=== PATIENT | female | born 1995 | race Caucasian/White ===

== ENCOUNTER 2022-03-26 06:53 | Outpatient (CLI) | payer OTHER, SELFPAY ==
[2022-03-26 07:59] LABS: Basophils Percent Auto 0.6 % (0.2-1.2); Eosinophils Absolute Auto 0.1 K/mm3 (0-0.3); Eosinophils Percent Auto 1.5 % (0-4.4); Hematocrit 41.6 % (37.0-47.0); Hemoglobin 13.5 g/dL (12.0-15.0); Immature Granulocyte Absolute 0.02 K/mm3 (0.00-0.031); Immature Granulocyte Percent A 0.3 % (0-0.5); Lymphocytes Absolute Auto 2.08 K/mm3 (0.9-3.2); Lymphocytes Percent Auto 30.5 % (18.3-44.2); Mean Corpuscular HGB Conc 32.5 g/dl (32-36); Mean Corpuscular Hemoglobin 30.2 pg (26-34); Mean Corpuscular Volume 93.1 fl (80-100); Mean Platelet Volume 10.9 fl (7.4-10.4); Monocytes Absolute Auto 0.4 K/mm3 (0.1-0.6); Monocytes Percent Auto 6.5 % (2.6-8.5); Neutrophils Absolute Auto 4.1 K/mm3 (1.3-6.7); Neutrophils Percent Auto 60.6 % (45.5-73.1); Platelet Count Result 220 k/mm3 (150-375); Red Blood Count 4.47 M/mm3 (4.2-5.4); Red Cell Distribution Width 12.4 % (11.5-14.5); White Blood Count 6.8 K/mm3 (4.5-10.0)
[2022-03-26 08:09] LABS: Alanine Aminotransferase 19 U/L (6-35); Albumin Level 4.9 g/dL (3.5-5.1); Alkaline Phosphatase 49 U/L (38-126); Anion Gap 5 mmol/L (8-16); Aspartate Amino Transferase 25 U/L (14-36); Bilirubin,Total 0.5 mg/dL (0.2-1.3); Blood Urea Nitrogen 17 mg/dL (7-17); Calcium 9.5 mg/dL (8.4-10.2); Carbon Dioxide 29 mmol/L (22-30); Chloride 102 mmol/L (98-107); Cholesterol 187 mg/dL (0-200); Estimated Glomerular Filt Rate > 60; Glucose 101 mg/dL (65-110); HDL Direct 60 mg/dL; Potassium 3.9 mmol/L (3.4-5.0); Sodium 136 mmol/L (137-145); Triglycerides 110 mg/dL (<150)
[2022-03-26 08:20] LABS: LDL Cholesterol Direct 79 mg/dL
== END 2022-03-26 06:54 | disposition home or self-care (01) ==
PROVIDERS: PCP Family Medicine; Visit Provider Family Medicine
DX: Z00.00 Encounter for general adult medical examination without abnormal findings (principal); R53.83 Other fatigue; E78.2 Mixed hyperlipidemia
CPT/HCPCS: 36415; 80053; 80061; 84443; 85025

== ENCOUNTER 2022-09-29 09:51 | Outpatient (CLI) | payer OTHER, SELFPAY ==
[2022-09-29 11:20] LABS: Thyroid Stimulating Hormone 0.576 uIU/mL (0.465-4.680)
[2022-10-05 07:26] LABS: Prolactin 5.7 ng/mL (***)
== END 2022-09-29 09:52 | disposition home or self-care (01) ==
LOC: ANHLAB 09:53
PROVIDERS: PCP Family Medicine; Visit Provider Obstetrics & Gynecology
DX: N92.6 Irregular menstruation, unspecified (principal)
CPT/HCPCS: 36415; 84146; 84443

== ENCOUNTER 2023-01-07 06:59 | Outpatient (CLI) | payer OTHER, SELFPAY ==
[2023-01-07 07:59] LABS: Basophils Percent Auto 0.7 % (0.2-1.2); Eosinophils Absolute Auto 0.1 K/mm3 (0-0.3); Eosinophils Percent Auto 1.5 % (0-4.4); Hemoglobin 12.2 g/dL (12.0-15.0); Immature Granulocyte Absolute 0.04 K/mm3 (0.00-0.031); Lymphocytes Percent Auto 19.8 % (18.3-44.2); Mean Corpuscular Hemoglobin 30.7 pg (26-34); Mean Corpuscular Volume 93.2 fl (80-100); Mean Platelet Volume 10.5 fl (7.4-10.4); Monocytes Absolute Auto 0.4 K/mm3 (0.1-0.6); Monocytes Percent Auto 8.7 % (2.6-8.5); Neutrophils Absolute Auto 2.8 K/mm3 (1.3-6.7); Neutrophils Percent Auto 68.3 % (45.5-73.1); Platelet Count Result 196 k/mm3 (150-375); Red Blood Count 3.97 M/mm3 (4.2-5.4); Red Cell Distribution Width 11.9 % (11.5-14.5)
[2023-01-07 09:16] LABS: Hepatitis B Surface Antigen Negative (Negative); Rubella IgG Antibody 38.5 IU/ML
[2023-01-07 09:22] LABS: HIV 1/2 Ab P24 Ag Result Negative (Negative)
[2023-01-07 12:44] LABS: Rapid Plasma Reagin Non-Reactive (NonReactive)
[2023-01-21 17:53] LABS: CF Result NEGATIVE (NEGATIVE); Ethnicity NG; SMA 2.0 RISK VARIANT NOT DETECTED
[2023-01-29 16:09] LABS: SMA Results Received Yes
== END 2023-01-07 07:00 | disposition home or self-care (01) ==
PROVIDERS: PCP Family Medicine; Visit Provider Student in an Organized Health Care Education/Training Program
DX: N94.89 Other specified conditions associated with female genital organs and menstrual cycle (principal)
CPT/HCPCS: 36415; 81220; 81329; 84702; 85025; 86592; 86644; 86703; 86747; 86762; 86787; 86850; 86900; 86901; 87086; 87340; G0432

== ENCOUNTER 2023-04-09 14:43 | Outpatient (CLI) | payer OTHER, SELFPAY ==
--- NOTE | ~2023-04-09 | US_ITS ---
EXAMINATION: US OB /maternal detail DATE: 04/09/2023 16:33 INDICATION: Second trimester anatomic survey TECHNIQUE: Real-time ultrasound of the pelvis was performed. COMPARISON: None. FINDINGS: There is a single living fetus in variable presentation. The placenta is posterior and 3.8 cm from th e internal cervical os. heart rate is 147 beats per minute (bpm). The measured cervical length is 7.6 cm. cardiac activity and movement are noted. The amniotic fluid index is subjectiv evangelina normal. The following anatomy was identified as normal: 4 chamber heart 3 vessel cord cord insertion kidneys urinary bladder stomach spine diaphragm ventricles cisterna magna cerebellum The following biometric data were obtained: Biparietal diameter (BPD): 4.9 cm; head circumference (HC): 18.7 cm; abdominal circumference (AC): 15 .1 cm; femur length (FL): 3.3 cm. These measurements are concordant. Estimated weight is 355 g +/- 53 g, which correlates with the 20th percentile when 08/20/2023 is used as estimated date of delivery. As single measurements, these parameters are each equal to the following estimated gestational ages w ith ranges of +/- 2 standard deviations: BPD: 20 weeks 6 days +/- 1 weeks 5 days. HC: 21 weeks 0 days +/- 1 weeks 3 days. AC: 20 weeks 2 days +/- 2 weeks 0 days. FL: 20 weeks 3 days +/- 1 weeks 6 days. estimated gestational age based solely on measurements from this exam is 20 weeks 5 days +/- 1 weeks 3 days. IMPRESSION: 1. Single living fetus in variable presentation. 2. Estimated weight is 355 g +/- 53 g, which correlates with the 20th percentile when 08/20/2023 is used as estimated date of delivery. Reviewed, dictated and finalized at location B. WAY PATROL OFFICER IMPRESSION: 1. Single living fetus in variable presentation. 2. Estimated weight is 355 g +/- 53 g, which correlates with the 20th per centile when 08/20/2023 is used as estimated date of delivery.
== END 2023-04-09 14:44 | disposition home or self-care (01) ==
PROVIDERS: PCP Family Medicine; Visit Provider Obstetrics & Gynecology
DX: Z34.92 Encounter for supervision of normal pregnancy, unspecified, second trimester (principal); Z3A.20 20 weeks gestation of pregnancy
CPT/HCPCS: 76805

== ENCOUNTER 2023-05-28 08:37 | Outpatient (CLI) | payer OTHER, SELFPAY ==
[2023-05-28 10:36] LABS: Basophils Percent Auto 0.5 % (0.2-1.2); Eosinophils Absolute Auto 0.1 K/mm3 (0-0.3); Eosinophils Percent Auto 1.3 % (0-4.4); Hematocrit 38.4 % (37.0-47.0); Hemoglobin 12.7 g/dL (12.0-15.0); Immature Granulocyte Absolute 0.05 K/mm3 (0.00-0.031); Immature Granulocyte Percent A 0.6 % (0-0.5); Lymphocytes Absolute Auto 1.82 K/mm3 (0.9-3.2); Lymphocytes Percent Auto 22.9 % (18.3-44.2); Mean Corpuscular HGB Conc 33.1 g/dl (32-36); Mean Corpuscular Hemoglobin 31.1 pg (26-34); Mean Corpuscular Volume 93.9 fl (80-100); Mean Platelet Volume 11.1 fl (7.4-10.4); Monocytes Absolute Auto 0.5 K/mm3 (0.1-0.6); Monocytes Percent Auto 5.8 % (2.6-8.5); Neutrophils Absolute Auto 5.5 K/mm3 (1.3-6.7); Neutrophils Percent Auto 68.9 % (45.5-73.1); Platelet Count Result 226 k/mm3 (150-375); Red Blood Count 4.09 M/mm3 (4.2-5.4); Red Cell Distribution Width 12.5 % (11.5-14.5)
[2023-05-28 10:55] LABS: Glucose 1 Hour PP 50gm Dose 104 mg/dL
[2023-05-28 11:29] LABS: HIV 1/2 Ab P24 Ag Result Negative (Negative)
== END 2023-05-28 08:38 | disposition home or self-care (01) ==
PROVIDERS: PCP Family Medicine; Visit Provider Obstetrics & Gynecology
DX: Z34.90 Encounter for supervision of normal pregnancy, unspecified, unspecified trimester (principal); Z3A.00 Weeks of gestation of pregnancy not specified
CPT/HCPCS: 36415; 82947; 85025; 86703; G0432

== ENCOUNTER 2023-07-21 16:07 | Outpatient (CLI) | payer OTHER, SELFPAY ==
--- NOTE | ~2023-07-21 | US_ITS ---
EXAMINATION: US OB follow up DATE: 07/21/2023 17:31 INDICATION: growth. Third trimester. TECHNIQUE: Real-time ultrasound of the pelvis was performed. COMPARISON: Ultrasound 05/08/2023, 01/27/2023 FINDINGS: There is a single living fetus in vertex presentation. The placenta is on the left. heart rate is 130 beats per minute (bpm). The amniotic fluid index is 7.8 cm, which is normal. The following biometric data were obtained: Biparietal diameter (BPD): 9.3 cm; head circumference (HC): 34.1 cm; abdominal circumference (AC): 31 .9 cm; femur length (FL): 6.5 cm. These measurements are discordant with low FL/BPD and high HC/AC ratios. Estimated weight is 2777 g +/- 217 g, which correlates with the 53rd percentile when 08/20/23 is used as estimated date of delivery. As single measurements, these parameters are each equal to the following estimated gestational ages: BPD: 37 weeks 6 days. HC: 39 weeks 2 days. AC: 35 weeks 6 days. FL: 33 weeks 5 days. estimated gestational age based solely on measurements from this exam is 36 weeks 5 days +/- 2 weeks 4 days. IMPRESSION: 1. Single living fetus in vertex presentation. 2. Estimated weight is 2777 g +/- 217 g, which correlates with the 53rd percentile when 4 is used as estimated date of delivery. 3. Discordant biometrics with low FL/BPD and high HC/AC ratios. Reviewed, dictated and finalized at location A. IMPRESSION: 1. Single living fetus in vertex presentation. 2. Estimated weight is 2777 g +/- 217 g, which correlates with the 53rd percentile when 08/20/23 is used as estimated date of delivery. 3. Discordant biometrics with low FL/BPD and high HC/AC ratios.
== END 2023-07-21 16:08 | disposition home or self-care (01) ==
LOC: ANHIMG 16:08
PROVIDERS: PCP Family Medicine; Visit Provider Obstetrics & Gynecology
DX: Z34.83 Encounter for supervision of other normal pregnancy, third trimester (principal)
CPT/HCPCS: 76816

== ENCOUNTER 2023-08-12 20:37 | Inpatient (IN) | payer OTHER, SELFPAY ==
[2023-08-12] VITALS (46 sets, daily range): BP systolic 95–134; BP diastolic 53–95; PULSE 75–135; TEMP 36.8; O2SAT 95–100; BMI 31.8
[2023-08-12 21:19] LABS: Basophils Percent Auto 0.3 % (0.2-1.2); Eosinophils Absolute Auto 0.1 K/mm3 (0-0.3); Eosinophils Percent Auto 0.6 % (0-4.4); Hematocrit 35.6 % (37.0-47.0); Hemoglobin 12.1 g/dL (12.0-15.0); Immature Granulocyte Absolute 0.05 K/mm3 (0.00-0.031); Immature Granulocyte Percent A 0.5 % (0-0.5); Lymphocytes Absolute Auto 1.96 K/mm3 (0.9-3.2); Mean Corpuscular Hemoglobin 30.8 pg (26-34); Mean Corpuscular Volume 90.6 fl (80-100); Mean Platelet Volume 11.7 fl (7.4-10.4); Monocytes Absolute Auto 0.6 K/mm3 (0.1-0.6); Monocytes Percent Auto 5.2 % (2.6-8.5); Neutrophils Absolute Auto 8.2 K/mm3 (1.3-6.7); Neutrophils Percent Auto 75.4 % (45.5-73.1); Platelet Count Result 193 k/mm3 (150-375); Red Blood Count 3.93 M/mm3 (4.2-5.4); Red Cell Distribution Width 13.1 % (11.5-14.5); White Blood Count 10.9 K/mm3 (4.5-10.0)
[2023-08-12] MEDS: LACTATED RINGERS 1,000 ML 125 ML IV CONT ×2 (21:49→22:40)
[2023-08-12 22:10] LABS: HIV 1/2 Ab P24 Ag Result Negative (Negative)
--- NOTE | 2023-08-12 22:21 | WPDANESEPP ---
Anes - Eval Pre Procedure Procedure: labor epidural Date/Time: 08/12/23 22:21 Surgeon: summer Preop Diagnosis: pain during labor Pre Op Diagnosis: IOL Patient Data Age: 27 Gender: F Height: 1.73 m Weight: 95 kg Last Vital Signs Pulse 89 08/12/23 22:00 BP 134/82 08/12/23 22:00 Pulse Ox 100 08/12/23 22:17 Allergies Allergy/AdvReac Type Severity Reaction Status Date / Time No Known Allergies Allergy Verified 08/12/23 21:55 Home Medications Medication Instructions Recorded Confirmed Type omeprazole 20 mg capsule,delayed 20 mg PO DAILY 11/24/21 08/12/23 History release vits no.126-ferrous fum tablet PO 01/06/23 08/12/23 History 28 mg iron-folic acid 800 mcg tablet (Classic ) ondansetron HCl 4 mg tablet 4 mg PO Q6H PRN nausea and 02/08/23 08/12/23 Rx vomiting #30 tabs Laboratory Tests 08/12/23 21:14 WBC 10.9 H K/mm3 (4.5-10.0) RBC 3.93 L M/mm3 (4.2-5.4) Hgb 12.1 g/dL (12.0-15.0) Hct 35.6 L % (37.0-47.0) MCV 90.6 fl (80-100) MCH 30.8 pg (26-34) MCHC 34.0 g/dl (32-36) RDW 13.1 % (11.5-14.5) Plt Count 193 k/mm3 (150-375) MPV 11.7 H fl (7.4-10.4) Immature Gran % (Auto) 0.5 % (0-0.5) Neut % (Auto) 75.4 H % (45.5-73.1) Lymph % (Auto) 18.0 L % (18.3-44.2) [place] % (Auto) 5.2 % (2.6-8.5) Eos % (Auto) 0.6 % (0-4.4) Baso % (Auto) 0.3 % (0.2-1.2) Lymph # (Auto) 1.96 K/mm3 (0.9-3.2) [place] # (Auto) 0.6 K/mm3 (0.1-0.6) Eos # (Auto) 0.1 K/mm3 (0-0.3) Baso # (Auto) 0.0 K/mm3 (0.0-0.1) Abs Immat Gran (auto) 0.05 H K/mm3 (0.00-0.031) Absolute Neuts (auto) 8.2 H K/mm3 (1.3-6.7) Absolute Nucleated RBC 0.000 K/mm3 (0.0-0.012) Nucleated RBC % 0.0 % (0.0-0.2) RPR Pending HIV 1&2 Ab/P24 Ag 4thGn Negative (Negative) Blood Type A Positive Antibody Screen Negative Patient hx anesthesia problems: none Family hx anesthesia problems: none Results Review: All pre-operative results and documents have been reviewed as part of the pre-operative evaluation. [facility] Past Medical History Medical History Abnormal Pap smear of cervix 10/10/2019 LGSIL + HPV Encounter for IUD insertion 09/06/18 Mirena insertion Encounter for IUD removal Lipoma of arm removed Suppression of menses Surgical History Surgical History History of colposcopy with cervical biopsy 10/18/19 benign History of ear, nose, and throat (ENT) surgery cyst removed from throat History of gynecological procedure (03/25/22) mirena iud removal History of tonsillectomy History of wisdom tooth extraction Family History Family History Mother Melanoma Social History Social History Smoking status: Never smoker Second hand tobacco smoke exposure: No Alcohol intake: current Drinks per week: 2 Substance use: never Substance use type: does not use Lack of Transportation: No Lack of Food: Never True Current Housing: I Have Housing Concerned About Future Housing: No Difficulty Paying Gas/Electric Bills: No Difficulty Paying for Meds: No Currently Unemployed: No Education: Bachelor's Degree Difficulty w/ Childcare or Family Care: No Living arrangements: other Additional living arrangements comments: Occupation/Education: occupation Additional occupation/education comments: nurse Gender identity (if verbalized by the patient): Female Sexual Orientation (if Verbalized by the Patient): Straight or Heterosexual Spiritual care concerns: No Agree to blood products: Yes Exam Day of Procedure 08/12/23 22:21
--- NOTE | 2023-08-12 22:41 | LDADM ---
This patient, Allie Uribe, was admitted to Labor/Delivery/Recovery 105 on 08/12/23 at 20:37. Plans for labor, pain management and were discussed with patient. Patient/family oriented to hospital policies and general routines including ID bracelet, bed and alarms, visiting hours, pain management, procedures, bathroom and other care routines, personal items, smoking policy, room service/diet and guest tray routines, security routines, and visiting hours. Patient/Family are encouraged to report perceived risks to care and to ask questions if they do not understand what they are told or what they should do. See OBIX for further documentation.
[2023-08-12] MEDS: ONDANSETRON INJ 4 MG/2 ML VIAL IV PUSH (23:51)
[2023-08-13] VITALS (68 sets, daily range): BP systolic 109–136; BP diastolic 48–87; PULSE 70–159; RESP 18; TEMP 36.6–37.7; O2SAT 81–100
[2023-08-13] MEDS: OXYTOCIN 30 UNITS/NS 500 ML 30 UNITS/500 ML BAG 999 UNITS IV CONT (02:54)
--- NOTE | 2023-08-13 03:05 | WPDHPUPDATE1 ---
History and Physical Update Update Date/Time: 08/13/23 03:05 27 yo G1 at 38w6d who presents with SROM History and Physical has been reviewed, including an updated exam of the patient. There are NO changes in the patient's condition. Risks, benefits, and alternatives have been discussed and questions answered. Patient agrees to proceed with procedure. A/P: admit to L&D routine admission orders Rh+ GBS neg expectant management may have epidural
--- NOTE | 2023-08-13 03:10 | PM.OBPRVD ---
OB - Vaginal Delivery Note Procedure Delivery date: 08/13/23 Induction method: None Delivery monitor: External FHT and External Uterine Route of delivery: Episiotomy description: None Laceration Description: Perineal - 2nd Degree Delivery repair: vicryl Specimen: No Quantitative Blood Loss (ml): 200 Anesthesia type: Epidural Disposition: Floor Complications: No immediate complications Narrative: Patient pushed for a spontaneous vaginal delivery. A nuchal x 1 was noted and delivered through. The fetus was delivered atraumatically and placed on the maternal abdomen. The cord was clamped and cut after 1 minute of life. The cord was double clamped and cut and a segment of cord was collected for cord gases. Cord blood was collected for blood type and Coomb's testing. The placenta delivered spontaneously and was noted to be intact. The perineum was inspected and a second degree perineal laceration was noted. The laceration was repaired with 3-0 vicryl in the usual running fashion. A 2 cm cyst was noted from the anterior vaginal mucosa. The cyst was ligated at its stalk. A figure of eight suture was placed after removing the cyts to assure hemostasis. Uterus palpated firm and good hemostasis was noted. Mom and baby were bonding comfortably after delivery. Baby Date of : 08/13/23 Time of : 02:50 Weeks of gestation at delivery: 38 gender: Male presentation: vertex position: Right Occiput Anterior Placenta delivery description: Spontaneous Cord Vessel Description: 3 Vessels and Nuchal Cord score one minute: 9 score five minutes: 9
[2023-08-13] MEDS: OXYTOCIN 30 UNITS/NS 500 ML 30 UNITS/500 ML BAG 125 UNITS IV CONT (03:28)
--- NOTE | 2023-08-13 05:10 | OBPPTRN ---
Patient transferred to post room #278 via wheelchair. Support person present. Oriented to unit, room, information board, rooming in, admission packet and security measures. Patient verbalizes understanding.
--- NOTE | 2023-08-13 11:30 | PC.NURSE ---
Consulted with patient to assess needs related to . Discussed with mother her successes, concerns and any questions she has. We reviewed working with the , supporting breast, protecting her nipples with an optimal deep latch, and good positioning. Encouraged understanding the benefits of skin to skin, responding to feeding cues, frequencies of feeding approximately 2-3 hours, duration of feedings, and milk production. Reviewed positioning and alignment, latching with a big, open, wide mouth. Infant very sleepy and not making many attempts to open his mouth or latch. Nipple shield given after several attempts (at 0945, 1030, and 1130) without latch success. Reviewed good handwashing, cleaning the nipple shield and the appropriate way to apply and use as a tool. Discussed with mom the nipple shield precautions, possible complications associated with the risks and benefits. Reviewed practicing with a nipple shield, then without and how to protect the milk supply and production. Mom and baby guide referred to as a resource for outpatient services, community resources and when to call a provider. Mom voiced understanding of the importance of hand expression, nipple stimulation and initiating a pumping schedule if infant continues to nurse with the shield. latched optimally to the left breast in cross cradle position with a nipple shield. Education given to the mother of how to visualize the suckling and signs of deep latch while using the nipple shield. The infant was able to maintain latch without discomfort to mother. Mother voiced understanding of the education shared, to call for assistance if the does not latch or if there is discomfort with . Reported to the Primary RN.
[2023-08-13 14:05] LABS: Rapid Plasma Reagin Non-Reactive (NonReactive)
--- NOTE | 2023-08-13 15:00 | PC.NURSE ---
Breast pump provided due to ineffective feeding/sleepy . Unable to awaken to feed. Mother has her own Spectra pump from home. Assisted her to set up pump, fit flanges, and adjust settings per her pump instructions. Instructions given on cleaning, care, usage, that there should be no pain, pumping schedule for infant who is not latching, collection, and storage of human milk. Mother was able to pump 15ml. Father fed infant the expressed breastmilk with the Spectra bottle and nipple. Instructed parents on recording amount on feeding sheet.?Mother voiced understanding of the education shared along with mom/baby guide. Reported to the Primary RN.
[2023-08-14 04:49] LABS: Hematocrit 35.1 % (37.0-47.0); Hemoglobin 11.5 g/dL (12.0-15.0)
[2023-08-14 07:45] VITALS: BP 109/71; PULSE 80; RESP 16; TEMP 37.1; O2SAT 98
--- NOTE | 2023-08-14 08:19 | PM.OBDSVD ---
DS: Admitting Diagnosis Discharge Date 08/14/23 Admitting Diagnosis intrauterine at term DS: Discharge Diagnosis Discharge Diagnosis (1) Normal vaginal delivery: Code(s): O80 - Encounter for full-term uncomplicated delivery Status: Acute OB - DS: Summary OB Procedures : None OB Procedures Intrapartum: Spontaneous Vag Delivery OB Procedures: : None Peripartum Data Laceration Description: Perineal - 2nd Degree Episiotomy description: None Status at Discharge Functional status at discharge: independent ambulation Overall status at discharge: patient is back to baseline Time Spent with Patient Time attestation: Total time spent providing and/or coordinating discharge services: Time spent: Less than 30 minutes Exam Const: General: comfortable and no acute distress Resp: Effort & Inspection: normal respiratory effort Auscultation: clear to auscultation bilaterally Cardio: Rate: regular rate GI: GI Palp: Yes Soft to palpation Auscultation: normal bowel sounds Other: Fundus firm below umbilicus Psych: Appearance: grossly normal Mental Status: mental status grossly normal Affect: normal affect DS: Data Data Completed and Pending Labs on day of discharge: Labs from last 24 hours 08/14/23 08/12/23 03:54 21:14 Hgb 11.5 L Hct 35.1 L RPR Non-reactive Discharge Plan Discharge Discharging Clinician: Karan Christie Patient Disposition: Home, Self-Care Activity: as tolerated and pelvic rest Diet: regular Patient Instructions: Antibiotic Form, Vaginal Delivery (DC) Stand Alone Forms: General Discharge Information Follow-up/Referrals: Paige Valdovinos MD [Physician] - Discharge Medications: New ibuprofen 600 mg tablet 600 mg PO Q6H PRN (Reason: pain) Qty: 30 0RF acetaminophen 500 mg tablet 500 mg PO Q6H PRN (Reason: pain) Qty: 30 0RF Continued omeprazole 20 mg capsule,delayed release(DR/EC) 20 mg PO DAILY Classic 28 mg iron- 800 mcg tablet PO ondansetron HCl 4 mg tablet 4 mg PO Q6H PRN (Reason: nausea and vomiting) Qty: 30 1RF Date of admission: 08/12/23 20:37 Primary Care Provider: Loraine Mendes Admitting Provider: Paige Valdovinos Attending physician on admission: Paige Valdovinos Condition: Stable
[2023-08-14] MEDS: WITCH HAZEL 40 PADS 1 PAD TOPICAL (08:42)
--- NOTE | 2023-08-14 12:05 | PC.NURSE ---
Patient viewed the discharge video Mother & Baby Care, The First Two Weeks . Patient was given the opportunity and encouraged to ask questions. Patient verbalized understanding of information shared and has been given the mother/baby guide for home reference.
[2023-08-16 10:28] VITALS: BP 117/75; PULSE 86; RESP 18; TEMP 36.7; O2SAT 98
== END 2023-08-14 12:40 | disposition home or self-care (01) | DRG 807 ==
LOC: ANHLDR 21:10 → ANHOB2 08-14 08:20 → ANHLDR 08-17 06:14 → ANHOB2 08-17 06:14
PROVIDERS: Admitting Provider Student in an Organized Health Care Education/Training Program; PCP Family Medicine; Visit Provider Student in an Organized Health Care Education/Training Program
DX: O69.81X0 Labor and delivery complicated by cord around neck, without compression, not applicable or unspecified (principal); Z37.0 Single live birth; Z3A.39 39 weeks gestation of pregnancy; O70.1 Second degree perineal laceration during delivery
CPT/HCPCS: 36415; 84112; 85014; 85018; 85025; 86592; 86703; 86850; 86900; 86901; A9270; G0432; J2405; J2590; J2795; J7120

== ENCOUNTER 2024-01-19 16:44 | Emergency (ER) | payer OTHER, SELFPAY ==
--- NOTE | 2024-01-19 16:47 | ED.EYEPROB ---
HPI - Eye Problem General Chief complaint: Eye Problems Stated complaint: Red eyes / itchy Time Seen by Provider: 01/19/24 17:10 Source: patient and RN notes reviewed Mode of arrival: ambulatory Limitations: no limitations History of Present Illness HPI Narrative: 28-year-old female presents with concern for red and itchy eyes. Reports that started yesterday. Reports her eyes were crusty morning. She denies vision changes. MD chief complaint: eye redness Related Data Allergies Allergy/AdvReac Type Severity Reaction Status Date / Time No Known Allergies Allergy Verified 01/19/24 17:00 Review of Systems Review of Systems: CONSTITUTIONAL: Denies malaise, chills, sweats, or fever. EYES: Denies visual changes. Reports bilateral redness, irritation, crusty discharge. ENT: Denies rhinorrhea, congestion, sinus pain, otalgia or sore throat. SKIN: Denies rash or itching. NEUROLOGIC: Denies numbness, weakness, or headache. PSYCHIATRIC: Denies anxiety or depression. All systems reviewed & are unremarkable except as noted in HPI and below PMFSH Past Medical History Medical History Abnormal Pap smear of cervix 10/10/2019 LGSIL + HPV Encounter for IUD insertion 09/06/18 Mirena insertion Encounter for IUD removal Lipoma of arm removed Suppression of menses Surgical History Surgical History History of colposcopy with cervical biopsy 10/18/19 benign History of ear, nose, and throat (ENT) surgery cyst removed from throat History of gynecological procedure (03/25/22) mirena iud removal History of tonsillectomy History of wisdom tooth extraction Family History Family History Mother Melanoma Social History Social History Smoking status: Never smoker Second hand tobacco smoke exposure: No Alcohol intake: current Drinks per week: 2 Substance use: never Substance use type: does not use Do You Feel Safe in your Home?: Yes Lack of Transportation: No Lack of Food: Never True Current Housing: I Have Housing Concerned About Future Housing: No Difficulty Paying Gas/Electric Bills: No Difficulty Paying for Meds: No Currently Unemployed: No Education: Bachelor's Degree Difficulty w/ Childcare or Family Care: No Living arrangements: other Additional living arrangements comments: Occupation/Education: occupation Additional occupation/education comments: nurse Gender identity (if verbalized by the patient): Female Sexual Orientation (if Verbalized by the Patient): Straight or Heterosexual Spiritual care concerns: No Agree to blood products: Yes Comments At time of signature, agree with nursing past medical, surgical, social and family history. There is no relevant family history pertinent to the presenting complaint Exam Narrative: GENERAL: Well-appearing, well-nourished, and in no acute distress. HEAD: Normocephalic, atraumatic. EYES: PERRLA, sclera clear, and EOMI. No nystagmus. Bilateral conjunctivae and sclera injected. Upper and lower eyelid unremarkable, no periorbital edema noted ENT: Nares clear, turbinates pink, no rhinorrhea or epistaxis. Mucous membranes moist. TM pearly dominguez with sharp light reflex bilaterally; no tragal tenderness. NECK: Supple. CHEST: No respiratory distress. Speaks in full sentences. HEART: Regular rate and rhythm. SKIN: Warm, dry, no visible rash. NEURO: Alert and oriented x3. PSYCH: Normal mood and affect Course Course Emergency Course: Patient is aware of diagnosis, understands and agrees to treatment plan. Anticipatory guidance given. Patient agrees to follow-up as directed and is aware of reasons to seek care at the emergency department. Portions of this record may have been created with voice recognition software Level of Care: Express Care Visit Vital Signs Vital signs: Reviewed. MDM - Eye Problem MDM Narrative Medical decision making narrative: Consideration of the following conditions may be warranted for the presenting problem, they are not final diagnoses: Bacterial conjunctivitis, allergic conjunctivitis, viral conjunctivitis, foreign body, blepharitis, chalazion, hordeolum, corneal abrasion, preseptal cellulitis, orbital cellulitis. No evidence of proptosis, ophthalmoplegia, vision loss, pain with eye movement. Exam findings show no acute concerns or changes; patient is non-toxic appearing and is in no distress. Patient is appropriate for outpatient treatment and follow-up. Critical Care Time Critical Care Time Critical Care Time: No Discharge Plan Discharge Clinical Impression: Conjunctivitis Patient Disposition: Home, Self-Care Condition: Stable Instructions: How to Use Eye Drops (ED) Additional Instructions: Do not touch or rub your eye. Use a warm or cool washcloth on your eye for comfort Use eyedrops as directed Practice good handwashing and hygiene to prevent spread of infection You may take Tylenol or ibuprofen for pain Follow-up with PCP or assistant family teacher if condition is not improving in 2-3days. Go to the emergency room if you have pain behind your eye, pressure behind your eye, difficulty seeing, or other severe symptoms Prescriptions: New polymyxin B sulf-trimethoprim 10,000 unit- 1 mg/mL drops 1 drp EACH EYE Q3H 7 Days Qty: 10 0RF Rx Instructions: while awake; do not exceed 6 doses in 24 hours Follow-up/Referrals: Loraine Mendes MD [Primary Care Provider] - Time of Disposition: 17:16
[2024-01-19 16:53] VITALS: BP 117/68; PULSE 86; RESP 16; TEMP 36.6; O2SAT 100
== END 2024-01-19 17:19 | disposition home or self-care (01) ==
PROVIDERS: Emergency Provider Nurse Practitioner; PCP Family Medicine
DX: H10.9 Unspecified conjunctivitis (principal)
CPT/HCPCS: 99213; G0463

== ENCOUNTER 2024-09-12 10:37 | Outpatient (CLI) | payer OTHER, SELFPAY ==
--- NOTE | ~2024-09-12 | XR_ITS ---
EXAM/ PROCEDURE: XR hip RT min 3V w AP pelvis - 09/12/2024 10:55 CDT HISTORY: 28 years old Female with NON TRAUMA RIGHT HIP PAIN COMPARISON: None available TECHNIQUE: Three view(s) FINDINGS/ IMPRESSION: There are no fractures or dislocations.Joint spaces are within normal limits. Reviewed, dictated and finalized at location A.
== END 2024-09-12 10:38 | disposition home or self-care (01) ==
PROVIDERS: PCP Family Medicine
DX: M25.551 Pain in right hip (principal)
CPT/HCPCS: 73502

== ENCOUNTER 2024-11-20 12:19 | Outpatient (CLI) | payer OTHER, SELFPAY ==
--- OUTSIDE RECORDS SUMMARY | 2024-11-20 12:22 | XMS_ITS | Clinical Summary ---
Author Organization [facility] Address [address] [place] [id number] Care Team Providers Care Mobile Service Rv Technician Name Role Phone Unavailable Primary Care Provider Unavailabl e Encounters Date Type Department Care Team Description 09/11/2024 Orders Only [facility] [address] [place] [address] Rudi Bloom MD Right hip pain (Primary Dx) from Last 3 Months Social History Tobacco Use Types Packs/Day Years Used Date Smoking Tobacco: Never Assessed Comments Unknown Sex and Gender Information Value Date Recorded Sex Assigned at Not on file Legal Sex Female 8:47 PM CDT Gender Identity Not on file Sexual Orientation Not on file Plan of Treatment Health Maintenance Due Date Last Done Comments Hepatitis C Screening ages 1 8 to 79 once 1995 MMR VACCINES (1 of 1 - Standard series) 10/12/1996 YEARLY WELLNESS EXAM 10/12/1998 DEPRESSION SCREENING 2007 Varicella Vaccine (1 of 2 - 13+ 2-dose series) 10/12/2008 HPV VACCINES (1 - 3-dose series) 10/12/2010 HEPATITIS B VACCINES (1 of 3 - 19+ 3-dose series) 10/12/2014 CERVICAL CANCER SCREENING 10/12/2016 Influenza Vaccine 09/22/2024 12/11/2022, 11/10/2018, 10/19/2017 COVID-19 Immunization ( season) 2024 05/23/2021, 05/15/2020, 04/24/2020 ADULT TETANUS 10/01/2027 09/30/2017 Zoster Vaccine (Recombinant Vaccine) (1 of 2) 10/12/2045 HEPATITIS A VACCINES Aged Out No long er eligible based on patient's age to complete this topic HIB VACCINES Aged Out No longer eligi ble based on patient's age to complete this topic IPV VACCINES Aged Out No longer eligi ble based on patient's age to complete this topic MENINGOCOCCAL VACCINE Aged Out No humaira mayi eligible based on patient's age to complete this topic Meningococcal B Vaccine Aged Out No l onger eligible based on patient's age to complete this topic Pneumococcal Vaccine: Peds t o 50 & At-Risk Patients Aged Out No longer eligible based on patient's age to complete this topic ROTAVIRUS VACCINES Aged Out No longer eligible based on patient's age to complete this topic
[2024-11-20 12:57] LABS: Hematocrit 37.5 % (37.0-47.0); Hemoglobin 12.5 g/dL (12.0-15.0); Mean Corpuscular HGB Conc 33.3 g/dl (32-36); Mean Corpuscular Hemoglobin 30.6 pg (26-34); Mean Corpuscular Volume 91.9 fl (80-100); Platelet Count Result 231 k/mm3 (150-375); Red Blood Count 4.08 M/mm3 (4.2-5.4); White Blood Count 7.4 K/mm3 (4.5-10.0)
[2024-11-20 13:51] LABS: Syphilis IgG/IgM Antibody Non-Reactive (Nonreactive)
[2024-11-20 13:55] LABS: Hepatitis B Surface Antigen Negative (Negative)
[2024-11-20 13:57] LABS: Beta HCG Quantitative 15156.00 mIU/ML
[2024-11-20 14:00] LABS: HIV 1/2 Ab P24 Ag Result Negative (Negative)
[2024-11-21 07:09] LABS: Cytomegalovirus (CMV) Ab, IgG 3.70 U/mL (0.00-0.59)
[2024-11-23 11:08] LABS: Parvovirus B19, IgG 3.8 index (0.0-0.8); Parvovirus B19, IgM 0.2 index (0.0-0.8)
== END 2024-11-20 12:20 | disposition home or self-care (01) ==
LOC: ANHLAB 12:21
PROVIDERS: PCP Family Medicine; Visit Provider Student in an Organized Health Care Education/Training Program
DX: N91.2 Amenorrhea, unspecified (principal)
CPT/HCPCS: 36415; 84702; 85027; 86593; 86644; 86703; 86747; 86762; 86850; 86900; 86901; 87086; 87340; G0432

== ENCOUNTER 2024-11-30 14:09 | Outpatient (CLI) | payer OTHER, SELFPAY ==
--- NOTE | ~2024-11-30 | US_ITS ---
EXAMINATION: US OB <=14 wk fetus w TV DATE: 11/30/2024 15:18 INDICATION: Amenorrhea, unspecified. TECHNIQUE: Real-time transabdominal and transvaginal pelvic ultrasound was performed. COMPARISON: None. FINDINGS: TRANSABDOMINAL ULTRASOUND: The uterus measures 10.1 x 5.6 x 6.9 cm. TRANSVAGINAL ULTRASOUND: There is an intrauterine gestational sac. A yolk sac is identified. The crown rump length measures 1.3 cm, which correlates with an estimated gestational age of 7 weeks and 3 day(s) (+/-) 5 day(s). heart motion is identified measuring 160 beats per minute (bpm) by M-mode Doppler. The right ovary measures 4.1 x 2.7 x 2.47 m. The left ovary measures 2.7 x 2.0 x 1.5 cm. There is no free fluid in the pelvis. IMPRESSION: 1. Single living intrauterine gestation with estimated date of delivery of 07/16/2025. Reviewed, dictated and finalized at location E. IMPRESSION: 1. Single living intrauterine gestation with estimated date of delivery of 06/23.
== END 2024-11-30 14:10 | disposition home or self-care (01) ==
PROVIDERS: PCP Family Medicine; Visit Provider Student in an Organized Health Care Education/Training Program
DX: N91.2 Amenorrhea, unspecified (principal)
CPT/HCPCS: 76801; 76817